=== PATIENT | male | born 1985 | race Caucasian/White ===

== ENCOUNTER 2016-12-21 13:09 | Inpatient (IN) | payer BC, OTHER ==
[2016-12-21 13:31] VITALS: BMI 5663.0
[2016-12-21] MEDS ORDERED: METOPROLOL TARTRATE 50 MG TABLET (FP) PO ONE (13:57)
[2016-12-21] MEDS ORDERED: METOPROLOL TARTRATE 5 MG/5 ML VIAL IVPUSH ONE (13:57)
[2016-12-21] MEDS ORDERED: NITROGLYCERIN SUBLINGUAL 1/150 0.4 MG TAB SL ONE (13:58)
[2016-12-21 14:29] LABS: BASOPHIL 1.9 % (0-2.0); MCH 30.4 pg (25.7-33.7); MCHC 33.9 g/dl (32.0-35.9); MEAN CELL VOLUME 89.6 fl (80-96); MEAN PLT VOLUME 7.6 fl (7.5-11.1); NEUTROPHILS 64.7 % (42.8-82.8); PLATELET COUNT 305 K/MM3 (134-434); RDW 13.5 % (11.9-15.9); WHITE BLOOD COUNT 7.7 K/mm3 (4.0-10.8)
--- NOTE | 2016-12-21 14:31 | PDOC ---
History of Present Illness - History of Present Illness Initial Comments: 12/21/16 15:05 The patient is a 31 year old male, with a significant past medical history of obesity, who presents to the emergency department with left eye swelling and redness today. The patient states he had a bad headache on Friday 12/15 which became intolerable Thursday night into Thursday resulting in the patient sleeping only two hours.The patient reports taking Advil which resolved the headache by Thursday night. He reports waking up on Thursday with redness to his left eye, which the patient states he thought it was caused from lack of sleep. He states the eye redness remained unchanged from Thursday until now. He also states the left eye is swollen. He reports going to work with his symptoms and states he noticed his left eye was shut. He reports intermittent blurred vision to his left eye. He denies any pain. He denies chest pain, shortness of breath, and dizziness. She denies fever, chills, nausea, vomit, diarrhea and constipation. She denies dysuria, frequency , urgency and hematuria. Allergies: NKDA Past surgical History: none reported Social history: everyday tobacco use (3 cigarettes), occasional alcohol consumption <Lizeth Simons - Last Filed: 12/21/16 20:45> <Miriam Stevenson - Last Filed: 12/26/16 23:26> - General Chief Complaint: Eye Problem Stated Complaint: LEFT EYE PAIN,HTN Time Seen by Provider: 12/21/16 13:26 Past History <Lizeth Simons - Last Filed: 12/21/16 20:45> - Past Medical History Other medical history: DENIES - Immunization History Immunization Up to Date: Yes - Suicide/Smoking/Psychosocial Hx Anxiety: No Suicidal Ideation: No Smoking History: Current some day smoker Have you smoked in the past 12 months: Yes Number of Cigarettes Smoked Daily: 10 Cigars Per Day: 0 Information on smoking cessation initiated: No Hx Alcohol Use: No Drug/Substance Use Hx: No Substance Use Type: None Hx Substance Use Treatment: No <Miriam Stevenson - Last Filed: 12/26/16 23:26> - Past Medical History Allergies/Adverse Reactions: Allergies Allergy/AdvReac Type Severity Reaction Status Date / Time No Known Allergies Allergy Verified 12/21/16 13:10 Home Medications: Ambulatory Orders Metoprolol Tartrate [Lopressor -] 25 mg PO BID #60 tablet 12/25/16 Polyvinyl Alcohol [Artificial Tears] 2 drop OU Q4H PRN #1 vial 12/25/16 Review of Systems - Review of Systems Able to Perform ROS?: Yes Comments:: 12/21/16 15:05 CONSTITUTIONAL: Absent: fever, chills, diaphoresis, generalized weakness, malaise, loss of appetite HEENT: (+) left eye redness and swelling. Absent: rhinorrhea, nasal congestion, throat pain, throat swelling, difficulty swallowing, mouth swelling, ear pain, eye pain , visual Changes CARDIOVASCULAR: Absent: chest pain, syncope, palpitations, irregular heart rate, lightheadedness , peripheral edema RESPIRATORY: Absent: cough, shortness of breath, dyspnea with exertion, orthopnea, wheezing, stridor, hemoptysis GASTROINTESTINAL: Absent: abdominal pain, abdominal distension, nausea, vomiting, diarrhea, constipation, melena, hematochezia GENITOURINARY: Absent: dysuria, frequency, urgency, hesitancy, hematuria, flank pain, genital pain MUSCULOSKELETAL: Absent: myalgia, arthralgia, joint swelling SKIN: Absent: rash, itching, pallor HEMATOLOGIC/IMMUNOLOGIC: Absent: easy bleeding, easy bruising, lymphadenopathy, frequent infections ENDOCRINE: Absent: unexplained weight gain, unexplained weight loss, heat intolerance, cold intolerance NEUROLOGIC: (+) headache, Absent:focal weakness or paresthesias, dizziness, unsteady gait, seizure, mental status changes, bladder or bowel incontinence PSYCHIATRIC: Absent: anxiety, depression, suicidal or homicidal ideation, hallucinations. <Lizeth Simons - Last Filed: 12/21/16 20:45> *Physical Exam - Vital Signs Last Vital Signs Temp Pulse Resp BP Pulse Ox 97.9 F 105 H 20 137/77 99 12/21/16 13:10 12/21/16 14:56 12/21/16 14:56 12/21/16 14:56 12/21/16 14:56 - Physical Exam Comments: 12/21/16 15:07 GENERAL: (+) Obese. Well developed, Awake and alert. No acute distress. HEENT: (+) left periorbital edema, redness to the cunjunctiva of left eye. Normocephalic, atraumatic. PERRLA, EOMI. Sclera are non-icteric. Moist mucous membranes. Oropharynx is clear. NECK: Supple. Full ROM. No JVD. Carotid pulses 2+ and symmetric, without bruits. No thyromegaly. No lymphadenopathy. CARDIOVASCULAR: Regular rate and rhythm. No murmurs, rubs, or gallops. Distal pulses are 2+ and symmetric. PULMONARY: No evidence of respiratory distress. Lungs clear to auscultation bilaterally. No wheezing, rales or rhonchi. ABDOMINAL: Soft. Non-tender. Non-distended. No rebound or guarding. No organomegaly. Normoactive bowel sounds. MUSCULOSKELETAL Normal range of motion at all joints. No bony deformities or tenderness. No CVA tenderness. EXTREMITIES: No cyanosis. No clubbing. No edema. No calf tenderness. SKIN: Warm and dry. Normal capillary refill. No rashes. No jaundice. NEUROLOGICAL: Alert, awake, appropriate. Cranial nerves 2-12 intact. Normoreflexic in the upper and lower extremities. Normal speech. Toes are down-going bilaterally. Gait is normal without ataxia. PSYCHIATRIC: Cooperative. Good eye contact. Appropriate mood and affect. <Lizeth Simons - Last Filed: 12/21/16 20:45> - Vital Signs Last Vital Signs Temp Pulse Resp BP Pulse Ox 97.9 F 107 H 20 157/113 97 12/21/16 13:10 12/21/16 13:10 12/21/16 13:10 12/21/16 13:10 12/21/16 13:10 <Miriam Stevenson - Last Filed: 12/26/16 23:26> ED Treatment Course - LABORATORY CBC & Chemistry Diagram: 12/21/16 14:19 12/21/16 14:19 - ADDITIONAL ORDERS Additional order review: Laboratory Results 12/21/16 12/21/16 12/21/16 14:19 14:19 14:19 PT with INR 10.7 INR 0.95 L PTT (Actin FS) 24.6 L Sodium 137 Potassium 4.1 Chloride 103 Carbon Dioxide 27 Anion Gap 7 L BUN 13 D Creatinine 0.9 Creat Clearance w eGFR > 60 Random Glucose 100 Calcium 9.6 Total Bilirubin 0.4 D AST 40 D ALT 94 H D Alkaline Phosphatase 83 Total Protein 7.9 Albumin 4.4 12/21/16 14:19 RBC 5.56 MCV 89.6 MCHC 33.9 RDW 13.5 D MPV 7.6 Neutrophils % 64.7 Lymphocytes % 19.0 Monocytes % 10.4 H Eosinophils % 4.0 Basophils % 1.9 - RADIOLOGY Radiograph Interpretation: 12/21/16 20:24 EXAM: CT angiogram brain IMAGES: [id number] DATE OF SERVICE: 2016-12-21 15:03:38 HISTORY: Left eye abduction and adduction compromise COMPARISON: None. The images provided utilized lossy compression which can limit visualization of fine detail. FINDINGS: 1. The right and axial images provided are 2 mm in thickness. This limits for evaluation of aneurysms less than 2 mm. 2. There is normal enhancement of the major intracranial arteries without evidence of occlusion, hemodynamically significant stenosis or aneurysm of the major intracranial arteries. 3. There is normal enhancement of the major intracranial venous structures. 4. The ventricles are normal size. 5. The orbital contents are unremarkable in appearance. 6. There is extra-axial calcification in the left frontal region which may represent tiny dural calcification or calcified meningioma. This does not result in significant mass effect. Linda Galindo MD 12/21/2016 19:56 EST - Medications Given in the ED: ED Medications Discontinued Medications Generic Name Dose Route Start Last Admin Trade Name Freq PRN Reason Stop Dose Admin Nitroglycerin 0.4 mg 12/21/16 13:58 12/21/16 14:45 Nitrostat - SL 12/21/16 13:59 0.4 mg ONCE ONE Administration <Lizeth Simons - Last Filed: 12/21/16 20:45> - LABORATORY CBC & Chemistry Diagram: 12/22/16 05:35 12/25/16 05:47 - RADIOLOGY Radiology Studies Ordered: Category Date Time Status HEAD CT WITHOUT CONTRAST [CT] Stat CT Scan 12/21/16 13:57 Ordered <Miriam Stevenson - Last Filed: 12/26/16 23:26> Medical Decision Making - Medical Decision Making 12/21/16 20:24 Dr. Hoffman, Opthamology on-call, was called at the office and I was directed to call ([phone]). Upon calling the number provided, a voicemail was left requesting a call back for doctor to doctor consult regarding this patient. 12/21/16 20:45 A second voicemail was left to the previously noted phone number for Dr. Hoffman requesting for a call back regarding this consult. <Lizeth Simons - Last Filed: 12/21/16 20:45> - Medical Decision Making 12/21/16 14:28 Dr. Weber of neurology aware of the patient. We are awaiting CT scan of patient's brain. Labs pending. BP meds given 12/21/16 15:29 Pt comes with left eye redness x 3 days and double vision for 1 day. Ongoing headache last week that resolved after 2 days. Pt has no DM, and although he is HTN on arrival, BP went down with one nitro SL. Pt is tachycardic to 107. Mom states that she suffers with severe PVCs and mom and dad both have HTN. Pt is obese but he has no medical problems. CT head normal. CTA brain pending. Labs normal. TSH pending. Pt remains with asymmetry of gaze with medial and lateral gaze. Pt admitted to the hospital. CTA official result pending. Pt signed out to the night ER attending, who will admit the patient so long as CTA doesn't show a aneurysm. <Miriam Stevenson - Last Filed: 12/26/16 23:26> *DC/Admit/Observation/Transfer - Attestations Scribe Attestion: 12/21/16 15:07 Documentation prepared by Lizeth Simons, acting as medical transcriber for Miriam Stevenson MD <Lizeth Simons - Last Filed: 12/21/16 20:45> - Discharge Dispostion Admit: Yes <Miriam Stevenson - Last Filed: 12/26/16 23:26> Diagnosis at time of Disposition: Ophthalmalgia, Migraine, Double vision, Tachycardia, Hypertension, Obesity - Discharge Dispostion Disposition: HOME Condition at time of disposition: Improved - Prescriptions
[2016-12-21] MEDS ORDERED: NITROGLYCERIN SUBLINGUAL 1/150 0.4 MG TAB ONE (14:35)
[2016-12-21] MEDS ORDERED: METOPROLOL TARTRATE 50 MG TABLET (FP) ONE (14:35)
[2016-12-21] MEDS ORDERED: METOPROLOL TARTRATE 5 MG/5 ML VIAL ONE (14:36)
[2016-12-21 14:45] LABS: ALBUMIN 4.4 g/dl (3.5-5.0); ALK PHOS 83 U/L (32-92); ANION GAP 7 (8-16); BILIRUBIN,TOTAL 0.4 mg/dl (0.2-1.0); CALCIUM 9.6 mg/dl (8.4-10.2); CO2 27 mmol/L (22-28); CREATININE 0.9 mg/dl (0.6-1.3); GLUCOSE,RANDOM 100 mg/dl (74-106); SGOT/AST 40 U/L (10-42); SGPT/ALT 94 U/L (10-40); TOT PROT 7.9 g/dl (6.4-8.3)
[2016-12-21 14:48] LABS: INR 0.95 (0.82-1.09); PROTHROMBIN TIME (PATIENT) 10.7 SEC (10.2-13.0)
[2016-12-21] MEDS ORDERED: SODIUM CHLORIDE 0.9% 500 ML INFUS.BAG IV ONE (14:56)
--- NOTE | 2016-12-21 21:40 | PN ---
Teaching Attending Note Name of Resident: Kevin Narvaez ATTENDING PHYSICIAN STATEMENT I saw and evaluated the patient. I reviewed the resident's note and discussed the case with the resident. I agree with the resident's findings and plan as documented. SUBJECTIVE: 31 yo M with pmhx of obesity who presents with swelling of the l. eye. States on 12/15 he had a "headache" which carried on until today. States he then noticed swelling of L. eye on Thursday with redness associated. Notes associated intermittent blurred vision to left eye. States that he wears glasses and has not had his eye checked recently. Does not note any trauma to eye. States that he sees double in left eye in peripheral gaze. OBJECTIVE: Physical: VS: Vital Signs Period Temp Pulse Resp BP Sys/Green Pulse Ox Last 24 Hr 97.9 F-97.9 F 87-107 18-20 131-157/77-113 97-99 GEN: NAD, Resting in bed, AA0X3 HEENT: NCAT, Mild L. Periorbital edema, Erythema of Sclera laterally of L. eye, pupils reactive, delayed on L. 4mm, Lateral gaze deviation on abduction, unable to abduct. Throat without erythema or exudates, R Eye PERRL CARD: RRR S1, S2 RESP: CTAB ABD: BSx4, NTD EXT: - C/C/E NEURO: Besides palsy of lateral gaze of L. Eye, rest of CN intact, No loss of sensation in upper/LE. CBCD WBC 7.7 K/mm3 (4.0-10.8) 12/21/16 14:19 RBC 5.56 M/mm3 (4.00-5.60) 12/21/16 14:19 Hgb 16.9 GM/dl (11.7-16.9) D 12/21/16 14:19 Hct 49.8 % (35.4-49) H 12/21/16 14:19 MCV 89.6 fl (80-96) 12/21/16 14:19 MCHC 33.9 g/dl (32.0-35.9) 12/21/16 14:19 RDW 13.5 % (11.9-15.9) D 12/21/16 14:19 Plt Count 305 K/MM3 (134-434) D 12/21/16 14:19 MPV 7.6 fl (7.5-11.1) 12/21/16 14:19 CMP Sodium 137 mmol/L (136-145) 12/21/16 14:19 Potassium 4.1 mmol/L (3.5-5.1) 12/21/16 14:19 Chloride 103 mmol/L (98-107) 12/21/16 14:19 Carbon Dioxide 27 mmol/L (22-28) 12/21/16 14:19 Anion Gap 7 (8-16) L 12/21/16 14:19 BUN 13 mg/dl (7-18) D 12/21/16 14:19 Creatinine 0.9 mg/dl (0.6-1.3) 12/21/16 14:19 Creat Clearance w eGFR > 60 (>60) 12/21/16 14:19 Random Glucose 100 mg/dl (74-106) 12/21/16 14:19 Calcium 9.6 mg/dl (8.4-10.2) 12/21/16 14:19 Total Bilirubin 0.4 mg/dl (0.2-1.0) D 12/21/16 14:19 AST 40 U/L (10-42) D 12/21/16 14:19 ALT 94 U/L (10-40) H D 12/21/16 14:19 Alkaline Phosphatase 83 U/L (32-92) 12/21/16 14:19 Total Protein 7.9 g/dl (6.4-8.3) 12/21/16 14:19 Albumin 4.4 g/dl (3.5-5.0) 12/21/16 14:19 12/21/16 20:24 EXAM: CT angiogram brain IMAGES: 413 DATE OF SERVICE: 2016-12-21 15:03:38 HISTORY: Left eye abduction and adduction compromise COMPARISON: None. The images provided utilized lossy compression which can limit visualization of fine detail. FINDINGS: 1. The right and axial images provided are 2 mm in thickness. This limits for evaluation of aneurysms less than 2 mm. 2. There is normal enhancement of the major intracranial arteries without evidence of occlusion, hemodynamically significant stenosis or aneurysm of the major intracranial arteries. 3. There is normal enhancement of the major intracranial venous structures. 4. The ventricles are normal size. 5. The orbital contents are unremarkable in appearance. 6. There is extra-axial calcification in the left frontal region which may represent tiny dural calcification or calcified meningioma. This does not result in significant mass effect. CT HEAD- Negative ASSESSMENT AND PLAN: 31 yo M with pmhx of obesity who presents with L.eye palsy in abduction 1.) Lateral gaze devation L. Eye DDx: MS, Lesion, less likely infection - CT HEAD, CTA negative - MRI BRAIN - Neuro and Optho consult - no evidence of orbital cellulitis, no abx coverage for now ( no leukocytosis, no orbital edema, no CT evidence) 2.) Transaminitis - Inc. ALT - Monitor 3.) Dvt Ppx - SCD Place in Obs-Tele
[2016-12-21] MEDS ORDERED: IBUPROFEN 400 MG TABLET (FP) PO PRN (23:18)
--- NOTE | 2016-12-21 23:51 | HP ---
CHIEF COMPLAINT: Double vision PCP: None HISTORY OF PRESENT ILLNESS: Mr. Rashid is a 31yo M w/ no significant PMHx who presented w/ double vision, transferred from [facility]. 1 week ago, started having sharp L sided headaches, constant, 6/10, improved w/ Ibuprofen. Unsure if headache worsened with time of day, lying down, valsalva maneuvers. Denies photophobia, sonophobia. 2 days later noticed non-tender scleral injection in L eye. Then, gradually noticed worsening diplopia on lateral gaze. Endorses mild pain w/ eye movement. Denies fevers, chills, malaise. Denies neck stiffness. Denies other signs of increased ICP (no N/V, no photophobia, no transient visual obscurations, no pulsatile tinnitus, no back pain). Denies trauma to eye. Denies foreign body sensation. Denies any other focal neurological deficits. In ER patient was found to be hypertensive (157/113) was given 0.4 SL Nitro + IV Toprol 5mg + PO Toprol 50mg with resolution to 137/77. Pt has no known hx of HTN. ER course was notable for: (1) Labs - no WBC count (2) Toprol for HTN (3) CT noncon + CTA head Recent Travel: Denies PAST MEDICAL HISTORY: None PAST SURGICAL HISTORY: None Social History: Smokin cigarettes/day Alcohol: Occasional Drugs: Denies Family History: Noncontributory Allergies No Known Allergies Allergy (Verified 12/21/16 13:10) HOME MEDICATIONS: Home Medications Medication Instructions Recorded NK [No Known Home Medication] 12/21/16 REVIEW OF SYSTEMS CONSTITUTIONAL: Absent: fever, chills, diaphoresis, generalized weakness, malaise, loss of appetite, weight change HEENT: Absent: rhinorrhea, nasal congestion, throat pain, throat swelling, difficulty swallowing, mouth swelling, ear pain, eye pain, visual change Present: visual change CARDIOVASCULAR: Absent: chest pain, syncope, palpitations, irregular heart rate, lightheadedness , peripheral edema RESPIRATORY: Absent: cough, shortness of breath, dyspnea with exertion, orthopnea, wheezing, stridor, hemoptysis GASTROINTESTINAL: Absent: abdominal pain, abdominal distension, nausea, vomiting, diarrhea, constipation, melena, hematochezia GENITOURINARY: Absent: dysuria, frequency, urgency, hesitancy, hematuria, flank pain, genital pain MUSCULOSKELETAL: Absent: myalgia, arthralgia, joint swelling, back pain, neck pain SKIN: Absent: rash, itching, pallor HEMATOLOGIC/IMMUNOLOGIC: Absent: easy bleeding, easy bruising, lymphadenopathy, frequent infections ENDOCRINE: Absent: unexplained weight gain, unexplained weight loss, heat intolerance, cold intolerance NEUROLOGIC: Absent: focal weakness or paresthesias, dizziness, unsteady gait, seizure, mental status changes, bladder or bowel incontinence Present: headache PSYCHIATRIC: Absent: anxiety, depression, suicidal or homicidal ideation, hallucinations. PHYSICAL EXAMINATION Vital Signs Temperature 98.4 F 12/21/16 22:00 Pulse Rate 101 H 12/21/16 22:00 Respiratory Rate 19 12/21/16 22:00 Blood Pressure 158/91 12/21/16 22:00 O2 Sat by Pulse Oximetry (%) 100 12/21/16 22:00 GEN: AAOx3, NAD, comfortable HEENT: Bilateral dilated pupils, reactive to light. On elevation, both eyes deviate slightly to the right R eye - No ptosis, no edema, no erythema, EOMi, no gaze palsy L eye - No ptosis, minimal periorbital edema, mild scleral injection in lateral aspect, no deviation on straightfwd gaze. Unable to fully abduct on abduction. Adduction and depression intact CV: S1, S2, RRR LUNG: CTABL ABD: Soft, NT, ND MSK: No edema, no erythema NEURO: Other than CN6, other CN 2-12 are intact, sensation is intact to face and body bilaterally, MSK 5/5 in upper and lower extremities Laboratory Last Values WBC 7.7 K/mm3 (4.0-10.8) 12/21/16 14:19 RBC 5.56 M/mm3 (4.00-5.60) 12/21/16 14:19 Hgb 16.9 GM/dl (11.7-16.9) D 12/21/16 14:19 Hct 49.8 % (35.4-49) H 12/21/16 14:19 MCV 89.6 fl (80-96) 12/21/16 14:19 MCH 30.4 pg (25.7-33.7) 12/21/16 14:19 MCHC 33.9 g/dl (32.0-35.9) 12/21/16 14:19 RDW 13.5 % (11.9-15.9) D 12/21/16 14:19 Plt Count 305 K/MM3 (134-434) D 12/21/16 14:19 MPV 7.6 fl (7.5-11.1) 12/21/16 14:19 Neutrophils % 64.7 % (42.8-82.8) 12/21/16 14:19 Lymphocytes % 19.0 % (8-40) 12/21/16 14:19 Monocytes % 10.4 % (3.8-10.2) H 12/21/16 14:19 Eosinophils % 4.0 % (0-4.5) 12/21/16 14:19 Basophils % 1.9 % (0-2.0) 12/21/16 14:19 PT with INR 10.7 SEC (10.2-13.0) 12/21/16 14:19 INR 0.95 (0.82-1.09) L 12/21/16 14:19 PTT (Actin FS) 24.6 SECONDS (24.0-38.9) L 12/21/16 14:19 Sodium 137 mmol/L (136-145) 12/21/16 14:19 Potassium 4.1 mmol/L (3.5-5.1) 12/21/16 14:19 Chloride 103 mmol/L (98-107) 12/21/16 14:19 Carbon Dioxide 27 mmol/L (22-28) 12/21/16 14:19 Anion Gap 7 (8-16) L 12/21/16 14:19 BUN 13 mg/dl (7-18) D 12/21/16 14:19 Creatinine 0.9 mg/dl (0.6-1.3) 12/21/16 14:19 Creat Clearance w eGFR > 60 (>60) 12/21/16 14:19 Random Glucose 100 mg/dl (74-106) 12/21/16 14:19 Calcium 9.6 mg/dl (8.4-10.2) 12/21/16 14:19 Total Bilirubin 0.4 mg/dl (0.2-1.0) D 12/21/16 14:19 AST 40 U/L (10-42) D 12/21/16 14:19 ALT 94 U/L (10-40) H D 12/21/16 14:19 Alkaline Phosphatase 83 U/L (32-92) 12/21/16 14:19 Total Protein 7.9 g/dl (6.4-8.3) 12/21/16 14:19 Albumin 4.4 g/dl (3.5-5.0) 12/21/16 14:19 TSH 1.21 uIU/ml (0.358-3.74) 12/21/16 15:17 Blood Type Cancelled 12/21/16 14:19 Antibody Screen Cancelled 12/21/16 14:19 Spec Expiration Date Cancelled 12/21/16 14:19 Active Medications Generic Name Dose Route Start Last Admin Trade Name Freq PRN Reason Stop Dose Admin Ibuprofen 400 mg 12/21/16 23:18 Motrin - PO Q6H PRN PAIN Metoprolol Tartrate 25 mg 12/21/16 23:45 12/22/16 00:44 Lopressor - PO 25 mg BID DIAMANTE Administration IMAGING CT Head Noncon - Negative CTA - Limited. 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 # L Sixth Nerve Palsy - No evidence of orbital cellulitis, neuro vs ophtho cause - CT and CTA negative as per [facility] - MRI head w/ contrast to look for localized cause - Ibuprofen 400mg Q6 PRN - Neurology consult - Ophthalmology consult # HTN - not on home meds - Start Metoprolol 25mg PO BID # Elevated ALT - no hx of hepatocellular dz, asymptomatic - CMP in AM # FEN - Fluids: None needed - Electrolytes: No abnormalities - Nutrition: Low sodium diet # Prophylaxis - DVT: SCDs, low risk - GI: Not indiated - Deconditioning: Patient is ambulatory # Dispo - Admit to Med/surg Visit type - Emergency Visit Emergency Visit: Yes ED Registration Date: 12/21/16 Care time: The patient presented to the Emergency Department on the above date and was hospitalized for further evaluation of their emergent condition. - New Patient This patient is new to me today: Yes Date on this admission: 12/23/16 - Critical Care Critical Care patient: No
[2016-12-22] MEDS: METOPROLOL TARTRATE 25 MG TABLET (FP) PO SCH ×4 (00:44→22:18)
[2016-12-22 07:22] LABS: MCH 30.7 pg (25.7-33.7); MCHC 34.1 g/dl (32.0-35.9); MEAN CELL VOLUME 90.2 fl (80-96); MEAN PLT VOLUME 7.5 fl (7.5-11.1); PLATELET COUNT 256 K/MM3 (134-434); RDW 14.1 % (11.9-15.9); WHITE BLOOD COUNT 8.9 K/mm3 (4.0-10.0)
[2016-12-22 08:00] LABS: ALBUMIN 3.6 g/dl (3.4-5.0); ANION GAP 8 (8-16); BILIRUBIN,TOTAL 0.5 mg/dL (0.2-1.0); CALCIUM 8.5 mg/dL (8.5-10.1); CO2 27 mmol/L (21-32); CREATININE 0.8 mg/dL (0.7-1.3); GLUCOSE,RANDOM 80 mg/dL (74-106); SGOT/AST 31 U/L (15-37); SGPT/ALT 93 U/L (12-78); TOT PROT 6.8 g/dl (6.4-8.2)
[2016-12-22 08:01] LABS: ALK PHOS 89 U/L (45-117)
--- NOTE | 2016-12-22 08:49 | EKG ---
Test Reason : Blood Pressure : / mmHG Vent. Rate : 107 BPM Atrial Rate : 107 BPM P-R Int : 124 ms QRS Dur : 078 ms QT Int : 330 ms P-R-T Axes : 048 060 027 degrees QTc Int : 440 ms SINUS TACHYCARDIA OTHERWISE NORMAL ECG NO PREVIOUS ECGS AVAILABLE Confirmed by AYSE SCOTT MD ([id number]) on 12/22/2016 8:49:01 AM Referred By: TOVA Confirmed By:AYSE SCOTT MD
--- NOTE | 2016-12-22 08:51 | ED.PROV ---
Physicial Exam I saw and examined the patient. - Vital Signs Last Vital Signs Temp Pulse Resp BP Pulse Ox 98.1 F 72 18 136/81 100 12/22/16 06:00 12/22/16 06:00 12/22/16 06:00 12/22/16 06:00 12/22/16 06:00 Critical Care Time/MDM Note - Medical Decision Making Note: 12/22/16 08:48 Received phone call from radiology regarding CTA. Left rectus muscle and lacrimal gland inflammation Likely orbital pseudotumor vs. less likely lymphoma. Paging [facility] hospitalist and will inform them of findings.
[2016-12-22] MEDS ORDERED: IBUPROFEN 400 MG TABLET (FP) PO PRN (10:16)
--- NOTE | 2016-12-22 10:22 | CONSULT ---
Consult - text type - Consultation Consultation Note: Neurology History of Present Illness The patient is a 31 year old male, with a significant past medical history of obesity, who presents to the emergency department with left eye swelling and redness at [place]. The patient states he had a bad headache on Thursday which became intolerable Thursday night into Thursday resulting in the patient sleeping only two hours.The patient reports taking Advil which resolved the headache by Thursday night. He reports waking up on Thursday with redness to his left eye, which the patient states he thought it was caused from lack of sleep. He states the eye redness remained unchanged from Thursday until Thursday, when he came to [facility]. He has been having ongoing horizontal diplopia without nystagmus and in ability to fully abduct eyes. Spoke to [place] multiple times overnight. Limitation in adduction as well but minimal. He completed CT head which was reviewed and did not show acute changes. He had CTA and there is ? oribtal mass (psedutomor vs lymphoma) per Dr. Read note but not official report of CTA in system at this time. There is a wide differential for opthalmeplegia with cranial nerve deficits including DM though his sugar was normal, could be remanent of complicated migraine, could be mass, vasculitis, and as mentioned lymphoma. MRI brain ordered and I agree with this. Also requested Optho consult. May need Rheum consult for vasculitis workup. Patient transferred to [facility] for escalation of care and services. Past History - Past Medical History Other medical history: DENIES - Immunization History Immunization Up to Date: Yes - Psycho/Social/Smoking Cessation Hx Anxiety: No Suicidal Ideation: No Smoking History: Current some day smoker Have you smoked in the past 12 months: Yes Number of Cigarettes Smoked Daily: 10 Cigars Per Day: 0 Information on smoking cessation initiated: No Hx Alcohol Use: No Drug/Substance Use Hx: No Substance Use Type: None Hx Substance Use Treatment: No - Past Medical History Allergies/Adverse Reactions: Allergies Allergy/AdvReac Type Severity Reaction Status Date / Time No Known Allergies Allergy Verified 12/21/16 13:10 Home Medications: Ambulatory Orders NK [No Known Home Medication] 12/21/16 Review of Systems CONSTITUTIONAL: Absent: fever, chills, diaphoresis, generalized weakness, malaise, loss of appetite HEENT: (+) left eye redness and swelling. Absent: rhinorrhea, nasal congestion, throat pain, throat swelling, difficulty swallowing, mouth swelling, ear pain, eye pain , visual Changes CARDIOVASCULAR: Absent: chest pain, syncope, palpitations, irregular heart rate, lightheadedness , peripheral edema RESPIRATORY: Absent: cough, shortness of breath, dyspnea with exertion, orthopnea, wheezing, stridor, hemoptysis GASTROINTESTINAL: Absent: abdominal pain, abdominal distension, nausea, vomiting, diarrhea, constipation, melena, hematochezia GENITOURINARY: Absent: dysuria, frequency, urgency, hesitancy, hematuria, flank pain, genital pain MUSCULOSKELETAL: Absent: myalgia, arthralgia, joint swelling SKIN: Absent: rash, itching, pallor HEMATOLOGIC/IMMUNOLOGIC: Absent: easy bleeding, easy bruising, lymphadenopathy, frequent infections ENDOCRINE: Absent: unexplained weight gain, unexplained weight loss, heat intolerance, cold intolerance NEUROLOGIC: (+) headache, Absent:focal weakness or paresthesias, dizziness, unsteady gait, seizure, mental status changes, bladder or bowel incontinence PSYCHIATRIC: Absent: anxiety, depression, suicidal or homicidal ideation, hallucinations. *Physical Exam GENERAL: (+) Obese. Well developed, Awake and alert. No acute distress. HEENT: (+) left periorbital edema, redness to the cunjunctiva of left eye. Normocephalic, atraumatic. PERRLA, EOMI. Sclera are non-icteric. Moist mucous membranes. Oropharynx is clear. NECK: Supple. Full ROM. No JVD. Carotid pulses 2+ and symmetric, without bruits. No thyromegaly. No lymphadenopathy. CARDIOVASCULAR: Regular rate and rhythm. No murmurs, rubs, or gallops. Distal pulses are 2+ and symmetric. PULMONARY: No evidence of respiratory distress. Lungs clear to auscultation bilaterally. No wheezing, rales or rhonchi. ABDOMINAL: Soft. Non-tender. Non-distended. No rebound or guarding. No organomegaly. Normoactive bowel sounds. MUSCULOSKELETAL Normal range of motion at all joints. No bony deformities or tenderness. No CVA tenderness. EXTREMITIES: No cyanosis. No clubbing. No edema. No calf tenderness. SKIN: Warm and dry. Normal capillary refill. No rashes. No jaundice. NEUROLOGICAL: Alert, awake, appropriate. L eye limitation in abduction and some limitated in adduction, Normal speech. Toes are down-going bilaterally. Gait is normal without ataxia. PSYCHIATRIC: Cooperative. Good eye contact. Appropriate mood and affect. CBCD WBC 8.9 K/mm3 (4.0-10.0) D 12/22/16 05:35 RBC 4.93 M/mm3 (4.00-5.60) 12/22/16 05:35 Hgb 15.2 GM/dL (11.7-16.9) D 12/22/16 05:35 Hct 44.5 % (35.4-49) 12/22/16 05:35 MCV 90.2 fl (80-96) 12/22/16 05:35 MCHC 34.1 g/dl (32.0-35.9) 12/22/16 05:35 RDW 14.1 % (11.9-15.9) 12/22/16 05:35 Plt Count 256 K/MM3 (134-434) 12/22/16 05:35 MPV 7.5 fl (7.5-11.1) 12/22/16 05:35 CMP Sodium 141 mmol/L (136-145) 12/22/16 05:35 Potassium 4.1 mmol/L (3.5-5.1) 12/22/16 05:35 Chloride 106 mmol/L (98-107) 12/22/16 05:35 Carbon Dioxide 27 mmol/L (21-32) 12/22/16 05:35 Anion Gap 8 (8-16) 12/22/16 05:35 BUN 11 mg/dL (7-18) 12/22/16 05:35 Creatinine 0.8 mg/dL (0.7-1.3) 12/22/16 05:35 Creat Clearance w eGFR > 60 (>60) 12/22/16 05:35 Calcium 8.5 mg/dL (8.5-10.1) 12/22/16 05:35 Total Bilirubin 0.5 mg/dL (0.2-1.0) 12/22/16 05:35 AST 31 U/L (15-37) 12/22/16 05:35 ALT 93 U/L (12-78) H 12/22/16 05:35 Alkaline Phosphatase 89 U/L (45-117) 12/22/16 05:35 Total Protein 6.8 g/dl (6.4-8.2) 12/22/16 05:35 Albumin 3.6 g/dl (3.4-5.0) 12/22/16 05:35 - RADIOLOGY CT head report reviewed CTA images reviewed CBCD WBC 8.9 K/mm3 (4.0-10.0) D 12/22/16 05:35 RBC 4.93 M/mm3 (4.00-5.60) 12/22/16 05:35 Hgb 15.2 GM/dL (11.7-16.9) D 12/22/16 05:35 Hct 44.5 % (35.4-49) 12/22/16 05:35 MCV 90.2 fl (80-96) 12/22/16 05:35 MCHC 34.1 g/dl (32.0-35.9) 12/22/16 05:35 RDW 14.1 % (11.9-15.9) 12/22/16 05:35 Plt Count 256 K/MM3 (134-434) 12/22/16 05:35 MPV 7.5 fl (7.5-11.1) 12/22/16 05:35 CMP Sodium 141 mmol/L (136-145) 12/22/16 05:35 Potassium 4.1 mmol/L (3.5-5.1) 12/22/16 05:35 Chloride 106 mmol/L (98-107) 12/22/16 05:35 Carbon Dioxide 27 mmol/L (21-32) 12/22/16 05:35 Anion Gap 8 (8-16) 12/22/16 05:35 BUN 11 mg/dL (7-18) 12/22/16 05:35 Creatinine 0.8 mg/dL (0.7-1.3) 12/22/16 05:35 Creat Clearance w eGFR > 60 (>60) 12/22/16 05:35 Calcium 8.5 mg/dL (8.5-10.1) 12/22/16 05:35 Total Bilirubin 0.5 mg/dL (0.2-1.0) 12/22/16 05:35 AST 31 U/L (15-37) 12/22/16 05:35 ALT 93 U/L (12-78) H 12/22/16 05:35 Alkaline Phosphatase 89 U/L (45-117) 12/22/16 05:35 Total Protein 6.8 g/dl (6.4-8.2) 12/22/16 05:35 Albumin 3.6 g/dl (3.4-5.0) 12/22/16 05:35 A/P 31 year old male, with a significant past medical history of obesity, who presents to the emergency department with left eye swelling and redness at [place]. The patient states he had a bad headache on Friday 12/15 which became intolerable Thursday night into Thursday resulting in the patient sleeping only two hours.The patient reports taking Advil which resolved the headache by Thursday night. He reports waking up on Thursday with redness to his left eye, which the patient states he thought it was caused from lack of sleep. He states the eye redness remained unchanged from Thursday until Thursday , when he came to [facility]. He has been having ongoing horizontal diplopia without nystagmus and in ability to fully abduct eyes. Spoke to [place] multiple times overnight. Limitation in adduction as well but minimal. He completed CT head which was reviewed and did not show acute changes. He had CTA and there is ? oribtal mass (psedutomor vs lymphoma) per Dr. Read note but not official report of CTA in system at this time. There is a wide differential for opthalmeplegia with cranial nerve deficits including DM though his sugar was normal, could be remanent of complicated migraine, could be mass, vasculitis, and as mentioned lymphoma. MRI brain ordered and I agree with this. Also requested Optho consult. May need Rheum consult for vasculitis workup. Patient transferred to [facility] for escalation of care and services. Follow up CTA report and will try to have MRI brain today. Optho consulted, awaiting input.
[2016-12-22] MEDS ORDERED: ARTIFICIAL TEARS (POLYVINYL ALCOHOL 1.4%) OPTH DROPS OU PRN (11:46)
[2016-12-22 13:11] LABS: C-REACTIVE PROTEIN < 0.3 MG/DL (0.00-0.3)
[2016-12-22] MEDS ORDERED: HEPARIN NA (PORCINE) 5,000 UNITS/ML 1ML VIAL SQ SCH (14:00)
--- NOTE | 2016-12-22 14:27 | PN ---
Physical Exam: SUBJECTIVE: Patient seen and examined. No acute events overnight. Pt reports some mild left eye discomfort, eye swelling, and horizontal diplopia. He denies headache, lightheadedness, chest pain, SOB, nausea, emesis, diarrhea, constipation, and dysuria. OBJECTIVE: Vital Signs Period Temp Pulse Resp BP Sys/Green Pulse Ox Last 24 Hr 98 F-98.4 F 72-102 18-19 136-158/81-91 100-100 GENERAL: The patient is awake, alert, and fully oriented, in no acute distress. HEAD: Normal with no signs of trauma. EYES: mild b/l mydriasis, normal b/l consensual pupillary constriction, unable to abduct left eye, left eye has lateral conjunctival injection ENT: Ears normal, nares patent, oropharynx clear without exudates, moist mucous membranes. NECK: Trachea midline, full range of motion, supple. LUNGS: Breath sounds equal, clear to auscultation bilaterally, no wheezes, no crackles, no accessory muscle use. HEART: Regular rate and rhythm, S1, S2 without murmur, rub or gallop. ABDOMEN: Soft, nontender, nondistended, normoactive bowel sounds, no guarding, no rebound, no hepatosplenomegaly, no masses. EXTREMITIES: 2+ pulses, warm, well-perfused, no edema. NEUROLOGICAL: Cranial nerves II through XII grossly intact except for left 6th nerve palsy. Normal speech, gait normal. PSYCH: Normal mood, normal affect. SKIN: Warm, dry, normal turgor, no rashes or lesions noted Laboratory Results - last 24 hr 12/22/16 12/22/16 12/22/16 05:35 05:35 12:00 WBC 8.9 D RBC 4.93 Hgb 15.2 D Hct 44.5 MCV 90.2 MCH 30.7 MCHC 34.1 RDW 14.1 Plt Count 256 MPV 7.5 Sodium 141 Potassium 4.1 Chloride 106 Carbon Dioxide 27 Anion Gap 8 BUN 11 Creatinine 0.8 Creat Clearance w eGFR > 60 Random Glucose 80 Calcium 8.5 Total Bilirubin 0.5 AST 31 ALT 93 H Alkaline Phosphatase 89 C-Reactive Protein < 0.3 D < 0.3 Total Protein 6.8 Albumin 3.6 Active Medications Generic Name Dose Route Start Last Admin Trade Name Freq PRN Reason Stop Dose Admin Artificial Tears 2 drop 12/22/16 11:46 Artificial Tears OU Q4H PRN DRY EYES Heparin Sodium (Porcine) 5,000 unit 12/22/16 14:00 Heparin - SQ TID DIAMANTE Ibuprofen 400 mg 12/22/16 10:16 Motrin - PO Q6H PRN PAIN Metoprolol Tartrate 25 mg 12/22/16 10:30 12/22/16 11:52 Lopressor - PO 25 mg BID DIAMANTE Administration CT Head: negative CTA Brain: extra-axial calcification in left frontal region, 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 Left rectus muscle and lacrimal gland inflammation, orbital pseudotumor vs. less likely lymphoma. ASSESSMENT/PLAN: 31M w/ no significant PMH who presented with several days of a severe left- sided headache followed by diplopia, found to have a left 6th nerve palsy on exam with CTA showing left lateral rectus muscle and lacrimal gland inflammation. #L 6th nerve palsy -differential is large including orbital pseudotumor, lymphoma, vasculitis, infectious -started artificial tears 2 drops in each eye QID -f/u brain MRI -neuro on board- Dr. Weber, recs appreciated -ophtho on board- Dr. Hoffman, f/u recs #HTN -found to be hypertensive to 157/113 on admission, no prior hx of HTN -continue metoprolol tartrate 25mg BID -monitor BP #Increased ALT -ALT of 94 --> 93 -no other abnormal LFTs, will no longer trend, can workup as outpt #FEN/PPx -no fluids -electrolytes wnl -sodium-controlled diet -no GI ppx indicated -heparin 5,000U TID Kishore Melendez MD PGY1 Problem List - Problems (1) Sixth nerve palsy of left eye Code(s): H49.22 - SIXTH [ABDUCENT] NERVE PALSY, LEFT EYE Visit type - Emergency Visit Emergency Visit: Yes ED Registration Date: 12/21/16 Care time: The patient presented to the Emergency Department on the above date and was hospitalized for further evaluation of their emergent condition. - New Patient This patient is new to me today: Yes Date on this admission: 12/22/16 - Critical Care Critical Care patient: No
[2016-12-22] MEDS: HEPARIN NA (PORCINE) 5,000 UNITS/ML 1ML VIAL SQ SCH ×2 (15:05→22:18)
--- NOTE | 2016-12-22 16:00 | PN ---
Teaching Attending Note Name of Resident: Kishore Melendez ATTENDING PHYSICIAN STATEMENT I saw and evaluated the patient. I reviewed the resident's note and discussed the case with the resident. I agree with the resident's findings and plan as documented. SUBJECTIVE: Patient is unable to ABduct the left eye. Denies any headache or any pain behind the eye. OBJECTIVE: Vital Signs Temperature 98 F 12/22/16 14:00 Pulse Rate 85 12/22/16 14:00 Respiratory Rate 18 12/22/16 14:00 Blood Pressure 129/53 12/22/16 14:00 O2 Sat by Pulse Oximetry (%) 98 12/22/16 14:00 CBCD WBC 8.9 K/mm3 (4.0-10.0) D 12/22/16 05:35 RBC 4.93 M/mm3 (4.00-5.60) 12/22/16 05:35 Hgb 15.2 GM/dL (11.7-16.9) D 12/22/16 05:35 Hct 44.5 % (35.4-49) 12/22/16 05:35 MCV 90.2 fl (80-96) 12/22/16 05:35 MCHC 34.1 g/dl (32.0-35.9) 12/22/16 05:35 RDW 14.1 % (11.9-15.9) 12/22/16 05:35 Plt Count 256 K/MM3 (134-434) 12/22/16 05:35 MPV 7.5 fl (7.5-11.1) 12/22/16 05:35 CMP Sodium 141 mmol/L (136-145) 12/22/16 05:35 Potassium 4.1 mmol/L (3.5-5.1) 12/22/16 05:35 Chloride 106 mmol/L (98-107) 12/22/16 05:35 Carbon Dioxide 27 mmol/L (21-32) 12/22/16 05:35 Anion Gap 8 (8-16) 12/22/16 05:35 BUN 11 mg/dL (7-18) 12/22/16 05:35 Creatinine 0.8 mg/dL (0.7-1.3) 12/22/16 05:35 Creat Clearance w eGFR > 60 (>60) 12/22/16 05:35 Random Glucose 80 mg/dL (74-106) 12/22/16 05:35 Calcium 8.5 mg/dL (8.5-10.1) 12/22/16 05:35 Total Bilirubin 0.5 mg/dL (0.2-1.0) 12/22/16 05:35 AST 31 U/L (15-37) 12/22/16 05:35 ALT 93 U/L (12-78) H 12/22/16 05:35 Alkaline Phosphatase 89 U/L (45-117) 12/22/16 05:35 Total Protein 6.8 g/dl (6.4-8.2) 12/22/16 05:35 Albumin 3.6 g/dl (3.4-5.0) 12/22/16 05:35 Current Medications Generic Name Dose Route Start Last Admin Trade Name Freq PRN Reason Stop Dose Admin Artificial Tears 2 drop 12/22/16 11:46 12/22/16 15:06 Artificial Tears OU 2 drop Q4H PRN Administration DRY EYES Heparin Sodium (Porcine) 5,000 unit 12/22/16 14:00 12/22/16 15:05 Heparin - SQ 5,000 unit TID DIAMANTE Administration Ibuprofen 400 mg 12/22/16 10:16 Motrin - PO Q6H PRN PAIN Metoprolol Tartrate 25 mg 12/22/16 10:30 12/22/16 11:52 Lopressor - PO 25 mg BID DIAMANTE Administration Home Medications Medication Instructions Recorded NK [No Known Home Medication] 12/21/16 PE: as per resident's note EYEs: intact pupillary reflexes BL, except anette't Abduct the left eye. CT Head - Negative CTA - Limited. No occlusion, stenosis, or aneurysm of major arteries or veins. ASSESSMENT/PLAN: Pt is a 31yo M w/ no significant PMHx who presented w/ diplopia on lateral gaze , likely has L sixth nerve palsy and Hypertensive urgency # L Sixth Nerve Palsy - with no evidence of orbital cellulitis; CT/CTA ids negative . Neuro and ophthalmo consult appreciated. # HTN was found to be hypertensive (157/113) on admission, no prior hx of HTN. Given SL nitro and Metoprolol , continue Lopressor 25mg PO BID # Elevated ALT - no hx of hepatocellular dz, # Prophylaxis DVT: SCDs, low risk
[2016-12-23] MEDS: HEPARIN NA (PORCINE) 5,000 UNITS/ML 1ML VIAL SQ SCH ×3 (06:10→21:29)
--- NOTE | 2016-12-23 08:16 | PN ---
Physical Exam: SUBJECTIVE: Patient seen and examined. No acute events overnight. Pt denies any eye pain, lightheadedness, nausea, SOB , and chest pain. He endorses eye discomfort and diplopia, the same as yesterday. OBJECTIVE: Vital Signs Period Temp Pulse Resp BP Sys/Green Pulse Ox Last 24 Hr 97.8 F-98.1 F 77-102 18-20 106-158/49-90 96-98 GENERAL: The patient is awake, alert, and fully oriented, in no acute distress. HEAD: Normal with no signs of trauma. EYES: mild b/l mydriasis, normal b/l consensual pupillary constriction, unable to abduct left eye completely, left eye has lateral conjunctival injection ENT: Ears normal, nares patent, oropharynx clear without exudates, moist mucous membranes. NECK: Trachea midline, full range of motion, supple. LUNGS: Breath sounds equal, clear to auscultation bilaterally, no wheezes, no crackles, no accessory muscle use. HEART: Regular rate and rhythm, S1, S2 without murmur, rub or gallop. ABDOMEN: Soft, nontender, nondistended, normoactive bowel sounds, no guarding, no rebound, no hepatosplenomegaly, no masses. EXTREMITIES: 2+ pulses, warm, well-perfused, no edema. NEUROLOGICAL: Cranial nerves II through XII grossly intact except for left 6th nerve palsy. Normal speech, gait normal. PSYCH: Normal mood, normal affect. SKIN: Warm, dry, normal turgor, no rashes or lesions noted Laboratory Results - last 24 hr 12/22/16 12/22/16 12/23/16 05:35 12:00 08:30 ESR 25 H Sodium 141 Potassium 4.1 Chloride 106 Carbon Dioxide 27 Anion Gap 8 BUN 11 Creatinine 0.8 Creat Clearance w eGFR > 60 POC Glucometer Random Glucose 80 Calcium 8.5 Total Bilirubin 0.5 AST 31 ALT 93 H Alkaline Phosphatase 89 C-Reactive Protein < 0.3 D < 0.3 Total Protein 6.8 Albumin 3.6 12/23/16 11:41 ESR Sodium Potassium Chloride Carbon Dioxide Anion Gap BUN Creatinine Creat Clearance w eGFR POC Glucometer 113 Random Glucose Calcium Total Bilirubin AST ALT Alkaline Phosphatase C-Reactive Protein Total Protein Albumin Active Medications Generic Name Dose Route Start Last Admin Trade Name Freq PRN Reason Stop Dose Admin Artificial Tears 2 drop 12/22/16 11:46 12/22/16 15:06 Artificial Tears OU 2 drop Q4H PRN Administration DRY EYES Heparin Sodium (Porcine) 5,000 unit 12/22/16 14:00 12/23/16 06:10 Heparin - SQ 5,000 unit TID DIAMANTE Administration Ibuprofen 400 mg 12/22/16 10:16 Motrin - PO Q6H PRN PAIN Metoprolol Tartrate 25 mg 12/22/16 10:30 12/22/16 22:18 Lopressor - PO 25 mg BID DIAMANTE Administration Brain MRI: left lateral rectus muscle and lacrimal gland inflammation, findings compatible with orbital pseudotumor ASSESSMENT/PLAN: 31M w/ no significant PMH who presented with several days of a severe left- sided headache followed by diplopia, found to have left 6th nerve palsy on exam with brain MRI showing left lateral rectus muscle and lacrimal gland inflammation compatible with orbital pseudotumor, started on steroids. #Left 6th nerve palsy -likely 2/2 to orbital pseudotumor -continue artificial tears 2 drops in each eye QID -Brain MRI: left lateral rectus muscle and lacrimal gland inflammation, findings compatible with orbital pseudotumor -ESR: 25 -neuro on board- Dr. Weber, recs appreciated -ophtho on board- Dr. Hoffman, recs appreciated that symptoms are likely due to hypertension (of note, pt had sister with eclampsia w/ vision loss) -per neuro, started IV solumedrol 250mg q6h x 3 days, ISS, BGM ACHS, and protonix 40mg qd -serial neuro exams to monitor for improvement on steroids #HTN -found to be hypertensive to 157/113 on admission, no prior hx of HTN -continue metoprolol tartrate 25mg BID -monitor BP #Increased ALT -ALT of 94 --> 93 -no other abnormal LFTs, will no longer trend, can workup as outpt #FEN/PPx -no fluids -electrolytes wnl -sodium-controlled diet -protonix 40mg -heparin 5,000U TID #Dispo -pending adequate response to steroids -will need PCP (HTN and elevated ALT), neuro, and ophthalmology f/u Kishore Melendez MD PGY1 Problem List - Problems (1) Sixth nerve palsy of left eye Code(s): H49.22 - SIXTH [ABDUCENT] NERVE PALSY, LEFT EYE Visit type - Emergency Visit Emergency Visit: Yes ED Registration Date: 12/21/16 Care time: The patient presented to the Emergency Department on the above date and was hospitalized for further evaluation of their emergent condition. - New Patient This patient is new to me today: No - Critical Care Critical Care patient: No
[2016-12-23] MEDS: METOPROLOL TARTRATE 25 MG TABLET (FP) PO SCH ×2 (10:02→21:29)
--- NOTE | 2016-12-23 10:22 | PN ---
Progress Note (short form) - Note Progress Note: Neurology History of Present Illness The patient is a 31 year old male, with a significant past medical history of obesity, who presents to the emergency department with left eye swelling and redness at [place]. The patient states he had a bad headache on Thursday which became intolerable Thursday night into Thursday resulting in the patient sleeping only two hours.The patient reports taking Advil which resolved the headache by Thursday night. He reports waking up on Thursday with redness to his left eye, which the patient states he thought it was caused from lack of sleep. He states the eye redness remained unchanged from Thursday until Thursday, when he came to [facility]. He has been having ongoing horizontal diplopia without nystagmus and in ability to fully abduct eyes. Spoke to [place] multiple times overnight. Limitation in adduction as well but minimal. He completed CT head which was reviewed and did not show acute changes. 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 MRA reviewed and did not show aneurym, stenosis, or any other malformation. Optho consult reviewed and note in paper chart. Believed to be 2/2 HTN. Active Medications Artificial Tears (Artificial Tears) 2 drop OU Q4H PRN PRN Reason: DRY EYES Last Admin: 12/22/16 15:06 Dose: 2 drop Heparin Sodium (Porcine) (Heparin -) 5,000 unit SQ TID [facility] Last Admin: 12/23/16 06:10 Dose: 5,000 unit Ibuprofen (Motrin -) 400 mg PO Q6H PRN PRN Reason: PAIN Metoprolol Tartrate (Lopressor -) 25 mg PO BID [facility] Last Admin: 12/23/16 10:02 Dose: 25 mg *Physical Exam GENERAL: (+) Obese. Well developed, Awake and alert. No acute distress. HEENT: (+) left periorbital edema, redness to the cunjunctiva of left eye. Normocephalic, atraumatic. PERRLA, EOMI. Sclera are non-icteric. Moist mucous membranes. Oropharynx is clear. NECK: Supple. Full ROM. No JVD. Carotid pulses 2+ and symmetric, without bruits. No thyromegaly. No lymphadenopathy. CARDIOVASCULAR: Regular rate and rhythm. No murmurs, rubs, or gallops. Distal pulses are 2+ and symmetric. PULMONARY: No evidence of respiratory distress. Lungs clear to auscultation bilaterally. No wheezing, rales or rhonchi. ABDOMINAL: Soft. Non-tender. Non-distended. No rebound or guarding. No organomegaly. Normoactive bowel sounds. MUSCULOSKELETAL Normal range of motion at all joints. No bony deformities or tenderness. No CVA tenderness. EXTREMITIES: No cyanosis. No clubbing. No edema. No calf tenderness. SKIN: Warm and dry. Normal capillary refill. No rashes. No jaundice. NEUROLOGICAL: Alert, awake, appropriate. L eye limitation in abduction and some limitated in adduction, Normal speech. Toes are down-going bilaterally. Gait is normal without ataxia. PSYCHIATRIC: Cooperative. Good eye contact. Appropriate mood and affect. CBCD WBC 8.9 K/mm3 (4.0-10.0) D 12/22/16 05:35 RBC 4.93 M/mm3 (4.00-5.60) 12/22/16 05:35 Hgb 15.2 GM/dL (11.7-16.9) D 12/22/16 05:35 Hct 44.5 % (35.4-49) 12/22/16 05:35 MCV 90.2 fl (80-96) 12/22/16 05:35 MCHC 34.1 g/dl (32.0-35.9) 12/22/16 05:35 RDW 14.1 % (11.9-15.9) 12/22/16 05:35 Plt Count 256 K/MM3 (134-434) 12/22/16 05:35 MPV 7.5 fl (7.5-11.1) 12/22/16 05:35 CMP Sodium 141 mmol/L (136-145) 12/22/16 05:35 Potassium 4.1 mmol/L (3.5-5.1) 12/22/16 05:35 Chloride 106 mmol/L (98-107) 12/22/16 05:35 Carbon Dioxide 27 mmol/L (21-32) 12/22/16 05:35 Anion Gap 8 (8-16) 12/22/16 05:35 BUN 11 mg/dL (7-18) 12/22/16 05:35 Creatinine 0.8 mg/dL (0.7-1.3) 12/22/16 05:35 Creat Clearance w eGFR > 60 (>60) 12/22/16 05:35 Calcium 8.5 mg/dL (8.5-10.1) 12/22/16 05:35 Total Bilirubin 0.5 mg/dL (0.2-1.0) 12/22/16 05:35 AST 31 U/L (15-37) 12/22/16 05:35 ALT 93 U/L (12-78) H 12/22/16 05:35 Alkaline Phosphatase 89 U/L (45-117) 12/22/16 05:35 Total Protein 6.8 g/dl (6.4-8.2) 12/22/16 05:35 Albumin 3.6 g/dl (3.4-5.0) 12/22/16 05:35 - RADIOLOGY CT head report reviewed MRI and MRA reviewed A/P 31 year old male, with a significant past medical history of obesity, who presents to the emergency department with left eye swelling and redness at [place]. The patient states he had a bad headache on Friday 12/15 which became intolerable Thursday night into Thursday resulting in the patient sleeping only two hours.The patient reports taking Advil which resolved the headache by Thursday night. He reports waking up on Thursday with redness to his left eye, which the patient states he thought it was caused from lack of sleep. He states the eye redness remained unchanged from Thursday until Thursday , when he came to the hosptial. He has been having ongoing horizontal diplopia without nystagmus and in ability to fully abduct eyes. MRI completed and possible pseudotumor Optho consult reviewed in paper chart, possibly blood pressure related Discussed with primary team, will start steroids IV solumedrol 250 Q6hr PPI, Insulin sliding scale Monitor glucose
[2016-12-23] MEDS ORDERED: PANTOPRAZOLE 20 MG TABLET (FP) PO SCH (10:45)
[2016-12-23] MEDS ORDERED: methylPREDNISolone NA SUCC 125 MG/2 ML VIAL IVPB SCH (10:45)
[2016-12-23] MEDS: PANTOPRAZOLE 40 MG TABLET (FP) PO SCH (11:39)
[2016-12-23] MEDS: methylPREDNISolone NA SUCC 125 MG/2 ML VIAL IVPB SCH ×2 (11:39→18:36)
[2016-12-23] MEDS: INSULIN SLIDING SCALE (NOVOLOG) 1 VIAL SQ SCH ×3 (11:51→22:10)
--- NOTE | 2016-12-23 12:51 | PN ---
Physical Exam: SUBJECTIVE: Patient seen and examined OBJECTIVE: Vital Signs Period Temp Pulse Resp BP Sys/Green Pulse Ox Last 24 Hr 97.8 F-98.1 F 77-97 18-20 106-153/49-87 96-98 GENERAL: The patient is awake, alert, and fully oriented, in no acute distress. HEAD: Normal with no signs of trauma. EYES: PERRL, extraocular movements intact, sclera anicteric, conjunctiva clear. No ptosis. ENT: Ears normal, nares patent, oropharynx clear without exudates, moist mucous membranes. NECK: Trachea midline, full range of motion, supple. LUNGS: Breath sounds equal, clear to auscultation bilaterally, no wheezes, no crackles, no accessory muscle use. HEART: Regular rate and rhythm, S1, S2 without murmur, rub or gallop. ABDOMEN: Soft, nontender, nondistended, normoactive bowel sounds, no guarding, no rebound, no hepatosplenomegaly, no masses. EXTREMITIES: 2+ pulses, warm, well-perfused, no edema. NEUROLOGICAL: Cranial nerves II through XII grossly intact. Normal speech, gait not observed. PSYCH: Normal mood, normal affect. SKIN: Warm, dry, normal turgor, no rashes or lesions noted Laboratory Results - last 24 hr 12/22/16 12/22/16 12/23/16 05:35 12:00 08:30 ESR 25 H Sodium 141 Potassium 4.1 Chloride 106 Carbon Dioxide 27 Anion Gap 8 BUN 11 Creatinine 0.8 Creat Clearance w eGFR > 60 POC Glucometer Random Glucose 80 Calcium 8.5 Total Bilirubin 0.5 AST 31 ALT 93 H Alkaline Phosphatase 89 C-Reactive Protein < 0.3 D < 0.3 Total Protein 6.8 Albumin 3.6 12/23/16 11:41 ESR Sodium Potassium Chloride Carbon Dioxide Anion Gap BUN Creatinine Creat Clearance w eGFR POC Glucometer 113 Random Glucose Calcium Total Bilirubin AST ALT Alkaline Phosphatase C-Reactive Protein Total Protein Albumin Active Medications Generic Name Dose Route Start Last Admin Trade Name Freq PRN Reason Stop Dose Admin Artificial Tears 2 drop 12/22/16 11:46 12/22/16 15:06 Artificial Tears OU 2 drop Q4H PRN Administration DRY EYES Heparin Sodium (Porcine) 5,000 unit 12/22/16 14:00 12/23/16 06:10 Heparin - SQ 5,000 unit TID [facility] Administration Ibuprofen 400 mg 12/22/16 10:16 Motrin - PO Q6H PRN PAIN Insulin Aspart 1 vial 12/23/16 11:00 12/23/16 11:51 Novolog Vial Sliding Scale - SQ Not Given ACHS [facility] Protocol Methylprednisolone Sodium Succinate 250 mg 12/23/16 12:00 12/23/16 11:39 Solu-Medrol - IVPB 250 mg Q6H [facility] Administration Metoprolol Tartrate 25 mg 12/22/16 10:30 12/23/16 10:02 Lopressor - PO 25 mg BID [facility] Administration Pantoprazole Sodium 40 mg 12/23/16 10:45 12/23/16 11:39 Protonix - PO 40 mg DAILY [facility] Administration ASSESSMENT/PLAN: Problem List - Problems (1) Sixth nerve palsy of left eye Code(s): H49.22 - SIXTH [ABDUCENT] NERVE PALSY, LEFT EYE
--- NOTE | 2016-12-23 18:11 | PN ---
Teaching Attending Note Name of Resident: Kishore Melendez ATTENDING PHYSICIAN STATEMENT I saw and evaluated the patient. I reviewed the resident's note and discussed the case with the resident. I agree with the resident's findings and plan as documented. SUBJECTIVE: No changes from yesterday. Denies any headache. or shortness of breath. OBJECTIVE: Vital Signs Temperature 99.5 F 12/23/16 14:00 Pulse Rate 91 H 12/23/16 14:00 Respiratory Rate 18 12/23/16 14:00 Blood Pressure 136/71 12/23/16 14:00 O2 Sat by Pulse Oximetry (%) 98 12/23/16 09:00 CBCD WBC 8.9 K/mm3 (4.0-10.0) D 12/22/16 05:35 RBC 4.93 M/mm3 (4.00-5.60) 12/22/16 05:35 Hgb 15.2 GM/dL (11.7-16.9) D 12/22/16 05:35 Hct 44.5 % (35.4-49) 12/22/16 05:35 MCV 90.2 fl (80-96) 12/22/16 05:35 MCHC 34.1 g/dl (32.0-35.9) 12/22/16 05:35 RDW 14.1 % (11.9-15.9) 12/22/16 05:35 Plt Count 256 K/MM3 (134-434) 12/22/16 05:35 MPV 7.5 fl (7.5-11.1) 12/22/16 05:35 CMP Sodium 141 mmol/L (136-145) 12/22/16 05:35 Potassium 4.1 mmol/L (3.5-5.1) 12/22/16 05:35 Chloride 106 mmol/L (98-107) 12/22/16 05:35 Carbon Dioxide 27 mmol/L (21-32) 12/22/16 05:35 Anion Gap 8 (8-16) 12/22/16 05:35 BUN 11 mg/dL (7-18) 12/22/16 05:35 Creatinine 0.8 mg/dL (0.7-1.3) 12/22/16 05:35 Creat Clearance w eGFR > 60 (>60) 12/22/16 05:35 Random Glucose 80 mg/dL (74-106) 12/22/16 05:35 Calcium 8.5 mg/dL (8.5-10.1) 12/22/16 05:35 Total Bilirubin 0.5 mg/dL (0.2-1.0) 12/22/16 05:35 AST 31 U/L (15-37) 12/22/16 05:35 ALT 93 U/L (12-78) H 12/22/16 05:35 Alkaline Phosphatase 89 U/L (45-117) 12/22/16 05:35 Total Protein 6.8 g/dl (6.4-8.2) 12/22/16 05:35 Albumin 3.6 g/dl (3.4-5.0) 12/22/16 05:35 Current Medications Generic Name Dose Route Start Last Admin Trade Name Freq PRN Reason Stop Dose Admin Artificial Tears 2 drop 12/22/16 11:46 12/22/16 15:06 Artificial Tears OU 2 drop Q4H PRN Administration DRY EYES Heparin Sodium (Porcine) 5,000 unit 12/22/16 14:00 12/23/16 13:29 Heparin - SQ 5,000 unit TID [facility] Administration Ibuprofen 400 mg 12/22/16 10:16 Motrin - PO Q6H PRN PAIN Insulin Aspart 1 vial 12/23/16 11:00 12/23/16 17:53 Novolog Vial Sliding Scale - SQ Not Given [facility]S [facility] Protocol Methylprednisolone Sodium Succinate 250 mg 12/23/16 12:00 12/23/16 11:39 Solu-Medrol - IVPB 250 mg Q6H [facility] Administration Metoprolol Tartrate 25 mg 12/22/16 10:30 12/23/16 10:02 Lopressor - PO 25 mg BID [facility] Administration Pantoprazole Sodium 40 mg 12/23/16 10:45 12/23/16 11:39 Protonix - PO 40 mg DAILY [facility] Administration Home Medications Medication Instructions Recorded NK [No Known Home Medication] 12/21/16 PE: as per resident's note Eye exam: no change fro m Yesterday , positive for pupillary reflexes, EOMI except can't abduct his lateral rectus muscle CT Head Noncon - Negative CTA - Limited. No occlusion, stenosis, or aneurysm of major arteries or veins. ASSESSMENT/PLAN: Pt is a 31yo M w/ no significant PMHx who presented w/ diplopia on lateral gaze , likely has L sixth nerve palsy and Hypertensive urgency # L Sixth Nerve Palsy - with no evidence of orbital cellulitis; CT/CTA ids negative . discussed with Neuro, that the patient will benefit from Solumedrol 250mg IV q6h x 3 days , discussed with radiology : MRI shows; inflammation of left rectus muscle ; ophthalmo consult appreciated follow up as an outpatient; his impression is due to elevated BP on admission. BGMs, since patient keerthi be on high steroid. # HTN was found to be hypertensive (157/113) on admission, no prior hx of HTN. Given SL nitro and Metoprolol , continue Lopressor 25mg PO BID # Elevated ALT - no hx of hepatocellular dz, monitor, slight improvement. # Prophylaxis DVT: SCDs, low risk
[2016-12-24] MEDS: methylPREDNISolone NA SUCC 125 MG/2 ML VIAL IVPB SCH ×4 (00:35→17:39)
[2016-12-24] MEDS: INSULIN SLIDING SCALE (NOVOLOG) 1 VIAL SQ SCH ×4 (06:38→22:44)
[2016-12-24] MEDS: HEPARIN NA (PORCINE) 5,000 UNITS/ML 1ML VIAL SQ SCH ×3 (06:38→22:44)
[2016-12-24] MEDS: METOPROLOL TARTRATE 25 MG TABLET (FP) PO SCH ×2 (10:05→22:44)
[2016-12-24] MEDS: PANTOPRAZOLE 40 MG TABLET (FP) PO SCH (10:05)
--- NOTE | 2016-12-24 10:12 | PN ---
Progress Note (short form) - Note Progress Note: Neurology History of Present Illness The patient is a 31 year old male, with a significant past medical history of obesity, who presents to the emergency department with left eye swelling and redness at [place]. The patient states he had a bad headache on Thursday which became intolerable Thursday night into Thursday resulting in the patient sleeping only two hours.The patient reports taking Advil which resolved the headache by Thursday night. He reports waking up on Thursday with redness to his left eye, which the patient states he thought it was caused from lack of sleep. He states the eye redness remained unchanged from Thursday until Thursday, when he came to [facility]. He has been having ongoing horizontal diplopia without nystagmus and in ability to fully abduct eyes. Spoke to [place] multiple times overnight. Limitation in adduction as well but minimal. He completed CT head which was reviewed and did not show acute changes. 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 MRA reviewed and did not show aneurym, stenosis, or any other malformation. Optho consult reviewed and note in paper chart. Believed to be 2/2 HTN. Patient was started on IV solumedrol 250mg Q6hrs by me on thursday and much improved subjectively. Less pain and pressure, moves his eyes more freely. Can't fully abduct eye yet but less painful. Still with some double vision. Active Medications Artificial Tears (Artificial Tears) 2 drop OU Q4H PRN PRN Reason: DRY EYES Last Admin: 12/22/16 15:06 Dose: 2 drop Heparin Sodium (Porcine) (Heparin -) 5,000 unit SQ TID [facility] Last Admin: 12/24/16 06:38 Dose: 5,000 unit Ibuprofen (Motrin -) 400 mg PO Q6H PRN PRN Reason: PAIN Insulin Aspart (Novolog Vial Sliding Scale -) 1 vial SQ ACHS [facility] PRN Reason: Protocol Last Admin: 12/24/16 06:38 Dose: Not Given Methylprednisolone Sodium Succinate (Solu-Medrol -) 250 mg IVPB Q6H [facility] Last Admin: 12/24/16 06:38 Dose: 250 mg Metoprolol Tartrate (Lopressor -) 25 mg PO BID [facility] Last Admin: 12/24/16 10:05 Dose: 25 mg Pantoprazole Sodium (Protonix -) 40 mg PO DAILY [facility] Last Admin: 12/24/16 10:05 Dose: 40 mg *Physical Exam GENERAL: (+) Obese. Well developed, Awake and alert. No acute distress. HEENT: (+) left periorbital edema, redness to the cunjunctiva of left eye. Normocephalic, atraumatic. PERRLA, EOMI. Sclera are non-icteric. Moist mucous membranes. Oropharynx is clear. NECK: Supple. Full ROM. No JVD. Carotid pulses 2+ and symmetric, without bruits. No thyromegaly. No lymphadenopathy. CARDIOVASCULAR: Regular rate and rhythm. No murmurs, rubs, or gallops. Distal pulses are 2+ and symmetric. PULMONARY: No evidence of respiratory distress. Lungs clear to auscultation bilaterally. No wheezing, rales or rhonchi. ABDOMINAL: Soft. Non-tender. Non-distended. No rebound or guarding. No organomegaly. Normoactive bowel sounds. MUSCULOSKELETAL Normal range of motion at all joints. No bony deformities or tenderness. No CVA tenderness. EXTREMITIES: No cyanosis. No clubbing. No edema. No calf tenderness. SKIN: Warm and dry. Normal capillary refill. No rashes. No jaundice. NEUROLOGICAL: Alert, awake, appropriate. L eye limitation in abduction and some limitated in adduction, Normal speech. Toes are down-going bilaterally. Gait is normal without ataxia. PSYCHIATRIC: Cooperative. Good eye contact. Appropriate mood and affect. CBCD WBC 8.9 K/mm3 (4.0-10.0) D 12/22/16 05:35 RBC 4.93 M/mm3 (4.00-5.60) 12/22/16 05:35 Hgb 15.2 GM/dL (11.7-16.9) D 12/22/16 05:35 Hct 44.5 % (35.4-49) 12/22/16 05:35 MCV 90.2 fl (80-96) 12/22/16 05:35 MCHC 34.1 g/dl (32.0-35.9) 12/22/16 05:35 RDW 14.1 % (11.9-15.9) 12/22/16 05:35 Plt Count 256 K/MM3 (134-434) 12/22/16 05:35 MPV 7.5 fl (7.5-11.1) 12/22/16 05:35 CMP Sodium 141 mmol/L (136-145) 12/22/16 05:35 Potassium 4.1 mmol/L (3.5-5.1) 12/22/16 05:35 Chloride 106 mmol/L (98-107) 12/22/16 05:35 Carbon Dioxide 27 mmol/L (21-32) 12/22/16 05:35 Anion Gap 8 (8-16) 12/22/16 05:35 BUN 11 mg/dL (7-18) 12/22/16 05:35 Creatinine 0.8 mg/dL (0.7-1.3) 12/22/16 05:35 Creat Clearance w eGFR > 60 (>60) 12/22/16 05:35 Calcium 8.5 mg/dL (8.5-10.1) 12/22/16 05:35 Total Bilirubin 0.5 mg/dL (0.2-1.0) 12/22/16 05:35 AST 31 U/L (15-37) 12/22/16 05:35 ALT 93 U/L (12-78) H 12/22/16 05:35 Alkaline Phosphatase 89 U/L (45-117) 12/22/16 05:35 Total Protein 6.8 g/dl (6.4-8.2) 12/22/16 05:35 Albumin 3.6 g/dl (3.4-5.0) 12/22/16 05:35 - RADIOLOGY CT head report reviewed MRI and MRA reviewed A/P 31 year old male, with a significant past medical history of obesity, who presents to the emergency department with left eye swelling and redness at [place]. The patient states he had a bad headache on Friday 12/15 which became intolerable Thursday night into Thursday resulting in the patient sleeping only two hours.The patient reports taking Advil which resolved the headache by Thursday night. He reports waking up on Thursday with redness to his left eye, which the patient states he thought it was caused from lack of sleep. He states the eye redness remained unchanged from Thursday until Thursday , when he came to the hosptial. He has been having ongoing horizontal diplopia without nystagmus and in ability to fully abduct eyes. MRI completed and possible pseudotumor Optho consult reviewed in paper chart, possibly blood pressure related Discussed with primary team, Started patient on steroids IV solumedrol 250 Q6hr This is day 2, tomorrow would be day 3 Should complete 3g total in dose Improving symptoms per patient PPI, Insulin sliding scale Monitor glucose
[2016-12-24] MEDS ORDERED: INSULIN (NOVOLOG) ASPART 100 UNITS/ML 10ML VIAL ONE (12:11)
--- NOTE | 2016-12-24 14:17 | PN ---
Addendum entered and electronically signed by Kishore Melendez RES 12/24/16 15:41: Plan: F/U a1c Original Note: Physical Exam: SUBJECTIVE: Patient seen and examined. No acute events overnight. Pt denies any new complaints. He reports that his diplopia, left eye discomfort, and eye swelling have been improving since starting the IV steroids. OBJECTIVE: Vital Signs Period Temp Pulse Resp BP Sys/Green Pulse Ox Last 24 Hr 97.8 F-98.7 F 92-103 20-20 118-149/64-88 96-98 GENERAL: The patient is awake, alert, and fully oriented, in no acute distress. HEAD: Normal with no signs of trauma. EYES: slight mydriasis, decreased left lateral scleral injection, decreased periorbital edema, improving left eye abduction ENT: Ears normal, nares patent, oropharynx clear without exudates, moist mucous membranes. NECK: Trachea midline, full range of motion, supple. LUNGS: Breath sounds equal, clear to auscultation bilaterally, no wheezes, no crackles, no accessory muscle use. HEART: Regular rate and rhythm, S1, S2 without murmur, rub or gallop. ABDOMEN: Soft, nontender, nondistended, normoactive bowel sounds, no guarding, no rebound, no hepatosplenomegaly, no masses. EXTREMITIES: 2+ pulses, warm, well-perfused, no edema. NEUROLOGICAL: Cranial nerves II through XII grossly intact besides for left 6th cranial nerve. Normal speech, gait not observed. PSYCH: Normal mood, normal affect. SKIN: Warm, dry, normal turgor, no rashes or lesions noted Laboratory Results - last 24 hr 12/23/16 12/23/16 12/24/16 17:34 21:31 05:39 POC Glucometer 148 206 147 12/24/16 11:54 POC Glucometer 152 Active Medications Generic Name Dose Route Start Last Admin Trade Name Freq PRN Reason Stop Dose Admin Artificial Tears 2 drop 12/22/16 11:46 12/22/16 15:06 Artificial Tears OU 2 drop Q4H PRN Administration DRY EYES Heparin Sodium (Porcine) 5,000 unit 12/22/16 14:00 12/24/16 06:38 Heparin - SQ 5,000 unit TID [facility] Administration Ibuprofen 400 mg 12/22/16 10:16 Motrin - PO Q6H PRN PAIN Insulin Aspart 1 vial 12/23/16 11:00 12/24/16 12:19 Novolog Vial Sliding Scale - SQ 2 units ACHS [facility] Administration Protocol Methylprednisolone Sodium Succinate 250 mg 12/23/16 12:00 12/24/16 12:19 Solu-Medrol - IVPB 250 mg Q6H [facility] Administration Metoprolol Tartrate 25 mg 12/22/16 10:30 12/24/16 10:05 Lopressor - PO 25 mg BID [facility] Administration Pantoprazole Sodium 40 mg 12/23/16 10:45 12/24/16 10:05 Protonix - PO 40 mg DAILY [facility] Administration BGM: 113-206 ASSESSMENT/PLAN: 31M w/ no significant PMH who presented with several days of a severe left- sided headache followed by diplopia, found to have left 6th nerve palsy on exam with brain MRI showing left lateral rectus muscle and lacrimal gland inflammation compatible with orbital pseudotumor, improving on steroids (day 2 of IV solumedrol). #Left 6th nerve palsy- improving w/ decreased diplopia, periorbital edema, and scleral injection, and improved left eye abduction -likely 2/2 to orbital pseudotumor -Brain MRI: left lateral rectus muscle and lacrimal gland inflammation, findings compatible with orbital pseudotumor -continue artificial tears 2 drops in each eye QID -neuro on board- leonor Poons appreciated -ophtho on board- Dr. Hoffman, recs appreciated that symptoms are likely due to hypertension (of note, pt had sister with eclampsia w/ vision loss) -continue IV solumedrol 250mg q6h x 3 days (today is day 2), ISS, BGM ACHS, and protonix 40mg qd -serial neuro exams to monitor for improvement on steroids #HTN -found to be hypertensive to 157/113 on admission, no prior hx of HTN -continue metoprolol tartrate 25mg BID -monitor BP #tachycardia- 2/2 anxiety? -HR elevated since last night between 90-100 -continue to monitor #Increased ALT -ALT of 94 --> 93 -no other abnormal LFTs, will no longer trend, can workup as outpt #FEN/PPx -no fluids -last electrolytes wnl -sodium-controlled diet -protonix 40mg -heparin 5,000U TID #Dispo -pending adequate response to steroids -will need PCP (HTN and elevated ALT), neuro, and ophthalmology f/u Kishore Melendez MD PGY1 Problem List - Problems (1) Sixth nerve palsy of left eye Code(s): H49.22 - SIXTH [ABDUCENT] NERVE PALSY, LEFT EYE Visit type - Emergency Visit Emergency Visit: Yes ED Registration Date: 12/21/16 Care time: The patient presented to the Emergency Department on the above date and was hospitalized for further evaluation of their emergent condition. - New Patient This patient is new to me today: No - Critical Care Critical Care patient: No
--- NOTE | 2016-12-24 20:04 | PN ---
Teaching Attending Note Name of Resident: Kishore Melendez ATTENDING PHYSICIAN STATEMENT I saw and evaluated the patient. I reviewed the resident's note and discussed the case with the resident. I agree with the resident's findings and plan as documented. SUBJECTIVE: no ANN , diplopia resolved and has blurry vision with L sided gaze only OBJECTIVE: NAD Cv : RRR Lungs : CTAB ext : no edema Neuro : round, equal , reactive to light, L eye with incomplete abduction of L eye , no nystagmus. no facial droop. nl facial sensation . Strength 5/5 in upper and lower ext , proximally and distally. sensation to light touch NL. reflexes 2+ knee jerk and biceps b/l ASSESSMENT AND PLAN: 31 y/o man with no significant PMH who presented with diplopia and ANN , he was found to have L rectus muscle dysfunction 1- L rectus muscle dysfunction : with thickened rectus muscle on MRI . ? inflammatory vs infiltrative . no tumors of demyelinating lesions - cont steroids as his sx improved - need repeat MRI as out pt - f/u with opth and neuro - D Ibruprofen as on steroids 2- HTN urgency . resolved - cont BB 3- elevated ALT. repeat dispo : HLOC
[2016-12-25] MEDS: methylPREDNISolone NA SUCC 125 MG/2 ML VIAL IVPB SCH ×2 (00:15→06:11)
[2016-12-25] MEDS: HEPARIN NA (PORCINE) 5,000 UNITS/ML 1ML VIAL SQ SCH (06:11)
[2016-12-25] MEDS: INSULIN SLIDING SCALE (NOVOLOG) 1 VIAL SQ SCH ×2 (06:11→12:19)
[2016-12-25 08:42] LABS: ALBUMIN 3.9 g/dl (3.4-5.0); ANION GAP 9 (8-16); CALCIUM 9.3 mg/dL (8.5-10.1); CO2 27 mmol/L (21-32); GLUCOSE,RANDOM 121 mg/dL (74-106)
[2016-12-25 08:46] LABS: ALK PHOS 85 U/L (45-117); BILIRUBIN,TOTAL 0.8 mg/dL (0.2-1.0); CREATININE 0.9 mg/dL (0.7-1.3); SGOT/AST 17 U/L (15-37); SGPT/ALT 81 U/L (12-78); TOT PROT 7.3 g/dl (6.4-8.2)
[2016-12-25] MEDS: PANTOPRAZOLE 40 MG TABLET (FP) PO SCH (09:04)
[2016-12-25] MEDS: METOPROLOL TARTRATE 25 MG TABLET (FP) PO SCH (09:05)
--- NOTE | 2016-12-25 10:37 | PN ---
Progress Note (short form) - Note Progress Note: Neurology History of Present Illness The patient is a 31 year old male, with a significant past medical history of obesity, who presents to the emergency department with left eye swelling and redness at [place]. The patient states he had a bad headache on Thursday which became intolerable Thursday night into Thursday resulting in the patient sleeping only two hours.The patient reports taking Advil which resolved the headache by Thursday night. He reports waking up on Thursday with redness to his left eye, which the patient states he thought it was caused from lack of sleep. He states the eye redness remained unchanged from Thursday until Thursday, when he came to [facility]. He has been having ongoing horizontal diplopia without nystagmus and in ability to fully abduct eyes. Spoke to [place] multiple times overnight. Limitation in adduction as well but minimal. He completed CT head which was reviewed and did not show acute changes. 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 MRA reviewed and did not show aneurym, stenosis, or any other malformation. Optho consult reviewed and note in paper chart. Believed to be 2/2 HTN. Patient was started on IV solumedrol 250mg Q6hrs by me on thursday and much improved subjectively. Less pain and pressure, moves his eyes more freely. Can't fully abduct eye yet but less painful. Still with some double vision. Final dose would be today, can give 500mg at 12 noon dose as patient would like to go home. Would not need taper of steroids for just three day course. Active Medications Artificial Tears (Artificial Tears) 2 drop OU Q4H PRN PRN Reason: DRY EYES Last Admin: 12/22/16 15:06 Dose: 2 drop Heparin Sodium (Porcine) (Heparin -) 5,000 unit SQ TID [facility] Last Admin: 12/25/16 06:11 Dose: 5,000 unit Insulin Aspart (Novolog Vial Sliding Scale -) 1 vial SQ ACHS [facility] PRN Reason: Protocol Last Admin: 12/25/16 06:11 Dose: Not Given Methylprednisolone Sodium Succinate (Solu-Medrol -) 250 mg IVPB Q6H [facility] Last Admin: 12/25/16 06:11 Dose: 250 mg Metoprolol Tartrate (Lopressor -) 25 mg PO BID [facility] Last Admin: 12/25/16 09:05 Dose: 25 mg Pantoprazole Sodium (Protonix -) 40 mg PO DAILY [facility] Last Admin: 12/25/16 09:04 Dose: 40 mg *Physical Exam GENERAL: (+) Obese. Well developed, Awake and alert. No acute distress. HEENT: (+) left periorbital edema, redness to the cunjunctiva of left eye. Normocephalic, atraumatic. PERRLA, EOMI. Sclera are non-icteric. Moist mucous membranes. Oropharynx is clear. NECK: Supple. Full ROM. No JVD. Carotid pulses 2+ and symmetric, without bruits. No thyromegaly. No lymphadenopathy. CARDIOVASCULAR: Regular rate and rhythm. No murmurs, rubs, or gallops. Distal pulses are 2+ and symmetric. PULMONARY: No evidence of respiratory distress. Lungs clear to auscultation bilaterally. No wheezing, rales or rhonchi. ABDOMINAL: Soft. Non-tender. Non-distended. No rebound or guarding. No organomegaly. Normoactive bowel sounds. MUSCULOSKELETAL Normal range of motion at all joints. No bony deformities or tenderness. No CVA tenderness. EXTREMITIES: No cyanosis. No clubbing. No edema. No calf tenderness. SKIN: Warm and dry. Normal capillary refill. No rashes. No jaundice. NEUROLOGICAL: Alert, awake, appropriate. L eye limitation in abduction and no signficant limitation in adduction, Normal speech. Toes are down-going bilaterally. Gait is normal without ataxia. PSYCHIATRIC: Cooperative. Good eye contact. Appropriate mood and affect. CBCD WBC 8.9 K/mm3 (4.0-10.0) D 12/22/16 05:35 RBC 4.93 M/mm3 (4.00-5.60) 12/22/16 05:35 Hgb 15.2 GM/dL (11.7-16.9) D 12/22/16 05:35 Hct 44.5 % (35.4-49) 12/22/16 05:35 MCV 90.2 fl (80-96) 12/22/16 05:35 MCHC 34.1 g/dl (32.0-35.9) 12/22/16 05:35 RDW 14.1 % (11.9-15.9) 12/22/16 05:35 Plt Count 256 K/MM3 (134-434) 12/22/16 05:35 MPV 7.5 fl (7.5-11.1) 12/22/16 05:35 CMP Sodium 139 mmol/L (136-145) 12/25/16 05:47 Potassium 4.6 mmol/L (3.5-5.1) 12/25/16 05:47 Chloride 103 mmol/L (98-107) 12/25/16 05:47 Carbon Dioxide 27 mmol/L (21-32) 12/25/16 05:47 Anion Gap 9 (8-16) 12/25/16 05:47 BUN 22 mg/dL (7-18) H D 12/25/16 05:47 Creatinine 0.9 mg/dL (0.7-1.3) 12/25/16 05:47 Creat Clearance w eGFR > 60 (>60) 12/25/16 05:47 Calcium 9.3 mg/dL (8.5-10.1) 12/25/16 05:47 Total Bilirubin 0.8 mg/dL (0.2-1.0) D 12/25/16 05:47 AST 17 U/L (15-37) D 12/25/16 05:47 ALT 81 U/L (12-78) H 12/25/16 05:47 Alkaline Phosphatase 85 U/L (45-117) 12/25/16 05:47 Total Protein 7.3 g/dl (6.4-8.2) 12/25/16 05:47 Albumin 3.9 g/dl (3.4-5.0) 12/25/16 05:47 - RADIOLOGY CT head report reviewed MRI and MRA reviewed A/P 31 year old male, with a significant past medical history of obesity, who presents to the emergency department with left eye swelling and redness at [place]. The patient states he had a bad headache on Friday 12/15 which became intolerable Thursday night into Thursday resulting in the patient sleeping only two hours.The patient reports taking Advil which resolved the headache by Thursday night. He reports waking up on Thursday with redness to his left eye, which the patient states he thought it was caused from lack of sleep. He states the eye redness remained unchanged from Thursday until Thursday , when he came to the hosptial. He has been having ongoing horizontal diplopia without nystagmus and in ability to fully abduct eyes. MRI completed and possible pseudotumor Optho consult reviewed in paper chart, possibly blood pressure related Started patient on steroids IV solumedrol 250 Q6hr Can give 500mg at noon and discharge PPI, Insulin sliding scale Monitor glucose Given information for outpatient follow up Won't need steroid taper for just three day course
[2016-12-25] MEDS ORDERED: methylPREDNISolone NA SUCC 125 MG/2 ML VIAL IVPB ONE (12:30)
--- NOTE | 2016-12-25 13:19 | PN ---
Teaching Attending Note Name of Resident: Jose Francisco Arias ATTENDING PHYSICIAN STATEMENT I saw and evaluated the patient. I reviewed the resident's note and discussed the case with the resident. I agree with the resident's findings and plan as documented. SUBJECTIVE: no fever or chills, no diplopia but minimal blurry vision with L lateral gaze OBJECTIVE: NAD Cv : RRR Lungs : CTAB ext : no edema Neuro : round, equal , reactive to light, L eye with incomplete abduction of L eye , no nystagmus. no facial droop. nl facial sensation . Strength 5/5 in upper and lower ext , proximally and distally. sensation to light touch NL. reflexes 2+ knee jerk and biceps b/l ASSESSMENT AND PLAN: 31 y/o man with no significant PMH who presented with diplopia and ANN , he was found to have L rectus muscle dysfunction 1- L rectus muscle dysfunction : with thickened rectus muscle on MRI . ? inflammatory vs infiltrative . no tumors of demyelinating lesions - last dose of steroids today - need repeat MRI as out pt - f/u with opth and neuro 2- HTN urgency . resolved - cont BB 3- elevated ALT. stable dispo : HLOC
[2016-12-25 15:30] VITALS: BP 138/66; PULSE 98; TEMP 98.9
--- NOTE | 2016-12-25 20:32 | DS ---
Physical Exam: SUBJECTIVE: Patient seen and examined No new complaint this am. OBJECTIVE: Vital Signs Period Temp Pulse Resp BP Sys/Green Pulse Ox Last 24 Hr 97.6 F-98.9 F 82-104 18-22 118-159/66-95 96-98 PHYSICAL EXAM GENERAL: The patient is awake, alert, and fully oriented, in no acute distress. HEAD: Normal with no signs of trauma. EYES: PERRL, extraocular movements intact, sclera anicteric, conjunctiva clear. ENT: Ears normal, nares patent, oropharynx clear without exudates, moist mucous membranes. NECK: Trachea midline, full range of motion, supple. LUNGS: Breath sounds equal, clear to auscultation bilaterally, no wheezes, no crackles, no accessory muscle use. HEART: Regular rate and rhythm, S1, S2 without murmur, rub or gallop. ABDOMEN: Soft, nontender, nondistended, normoactive bowel sounds, no guarding, no rebound, no hepatosplenomegaly, no masses. EXTREMITIES: 2+ pulses, warm, well-perfused, no edema. NEUROLOGICAL: round, equal , reactive to light, L eye with incomplete abduction of L eye , no nystagmus. no facial droop. nl facial sensation . Strength 5/5 in upper and lower ext , proximally and distally. sensation to light touch NL. reflexes 2+ knee jerk and biceps b/l PSYCH: Normal mood, normal affect. SKIN: Warm, dry, normal turgor, no rashes or lesions noted. LABS Laboratory Results - last 24 hr 12/24/16 12/25/16 12/25/16 22:37 05:47 05:47 Sodium 139 Potassium 4.6 Chloride 103 Carbon Dioxide 27 Anion Gap 9 BUN 22 H D Creatinine 0.9 Creat Clearance w eGFR > 60 POC Glucometer 187 Random Glucose 121 H D Hemoglobin A1c % 5.5 Calcium 9.3 Total Bilirubin 0.8 D AST 17 D ALT 81 H Alkaline Phosphatase 85 Total Protein 7.3 Albumin 3.9 12/25/16 12/25/16 06:08 12:14 Sodium Potassium Chloride Carbon Dioxide Anion Gap BUN Creatinine Creat Clearance w eGFR POC Glucometer 141 151 Random Glucose Hemoglobin A1c % Calcium Total Bilirubin AST ALT Alkaline Phosphatase Total Protein Albumin HOSPITAL COURSE: Date of Admission:12/21/16 Date of Discharge: 12/25/16 31 y/o man with no significant PMH who presented with diplopia and ANN, he was found to have L rectus muscle dysfunction CTA : Showed heterogenous enlargement of the left lacrimal gland and 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 He was treated with intravenous solumedrol at 250mg Q6H and the improved diplopia improved He will need repeat MRI as out patient He was also found to have hypertensive urgency with a BP of 157/113 which was controlled on metoprolol His blood pressure at discharge was 132/90 He is discharged on metoprolol 25mg bid He will need to follow up with with opthalmology and neurology as an out patient Minutes to complete discharge: 41 Discharge Summary Reason For Visit: OPTHALMALGIA,MIGRANE,TACHYCARDIA,HYPERTENSION Condition: Improved - Instructions Diet, Activity, Other Instructions: you were seen here for your eye problems. you had swelling in one of the muscles of the left eye you were treated with steroids and you improved if your symptoms start to get worse please call your doctors and go to the nearest emergency room. if you develop fevers chills vision changes redness in or around the eye go to the nearest emergency room right away. please see the eye doctor please see the neurologist You need repeat MRI of your head to evaluate the thickened eye muscle to re- evaluate you can see me Dr. Gordon Singer in the clinic here at [facility]. Call [phone] and ask them to page me Dr. Gordon Singer and i can set up an appointment for you if not i will give you Dr. Willett's number and you can schedule an appointment with him. You will be on metoprolol 25mg by mouth twice a day for your high blood pressure. watch your salt intake ( no ore than 2 grams /day = 1 tea spoon /day ) you should exercise and lose weight YOu need repeat liver function test , due to the elevated ALT . It was a pleasure taking care of you Dr. Singer Referrals: Jerry Dodge MD [Staff Physician] - Sonny Hoffman MD [Staff Physician] - 1 Week Deep Weber MD [Staff Physician] - 1 Week STAFF,NOT ON [Non Staff, Medical] - 1 Week (Page Me Dr. Gordon Singer [phone]) Disposition: HOME - Home Medications Comprehensive Discharge Medication List: Ambulatory Orders Metoprolol Tartrate [Lopressor -] 25 mg PO BID #60 tablet 12/25/16 Polyvinyl Alcohol [Artificial Tears] 2 drop OU Q4H PRN #1 vial 12/25/16 This patient is new to me today: Yes Date on this admission: 12/25/16 Emergency Visit: Yes ED Registration Date: 12/21/16 Care time: The patient presented to the Emergency Department on the above date and was hospitalized for further evaluation of their emergent condition. Critical Care patient: No - Discharge Referral Referred to [facility] Yes Physician Referral: Jerry Vaughn MD ([facility])
== END 2016-12-25 15:41 | disposition home or self-care (01) | DRG 123 ==
LOC: FER 13:09 → FM/S 17:13 → UNDOADMOB 17:13 → FER 21:30 → J4W 21:55
PROVIDERS: ADMIT Internal Medicine; ATTEND Internal Medicine
DX: H49.22 Sixth [abducent] nerve palsy, left eye (principal); F17.210 Nicotine dependence, cigarettes, uncomplicated; I10 Essential (primary) hypertension; E66.9 Obesity, unspecified; Z68.39 Body mass index [BMI] 39.0-39.9, adult; R00.0 Tachycardia, unspecified; R74.0 Nonspecific elevation of levels of transaminase and lactic acid dehydrogenase [LDH]; H53.2 Diplopia; G43.909 Migraine, unspecified, not intractable, without status migrainosus
CPT/HCPCS: 36415; 70450-TC; 70496-TC; 70546-TC; 70553-TC; 80053; 83036; 84443; 85025; 85027; 85610; 85651; 85730; 86140; 87081; 93005; 99283-25; J1644